=== PATIENT | female | born 1965 | race Caucasian/White ===

== ENCOUNTER → 2018-12-13 | Outpatient (REF) | payer BC ==
[2017-05-13 08:30] VITALS: BMI 43.8
[~2018-12-13] MED LIST: ALBU8.5H IH; ASPI-757 PO; ATEN100T93 PO; HYDR12.556 PO; IBUP800T37 PO; LOSA-51 PO; LOSA50TA80 PO; MAGN250T34 PO; NIAC750T PO; OXYC-373 PO; RIVA15TA PO
[2018-12-13 12:48] LABS: PLATELET COUNT, AUTOMATED 203 K/uL (150-450)
== END ==
LOC: ZZSTITCHES 12:22
PROVIDERS: ATTEND Physician Assistant
DX: I87.2 Venous insufficiency (chronic) (peripheral) (principal); R60.9 Edema, unspecified
CPT/HCPCS: 82040; 82247; 82310; 82374; 82435; 82565; 82947; 84075; 84132; 84155; 84295; 84450; 84460; 84520; 85025